=== PATIENT | female | born 1985 ===

== ENCOUNTER 2016-06-07 23:48 | Emergency (ER) | payer OTHER ==
[~2016-06-07] VITALS: Ht 137.2 cm; Wt 62.1 kg
[2016-06-08 00:43] LABS: PLATELET COUNT 348 K/uL (152-353)
[2016-06-08 00:49] LABS: POTASSIUM 3.6 mmol/L (3.6-5.2); SODIUM 135 mmol/L (136-145)
[2016-06-08 01:38] VITALS: BP 108/62; TEMP 97.8
== END 2016-06-08 01:39 | disposition home or self-care (01) ==
LOC: ED 23:48
PROVIDERS: Family Medicine
DX: R10.9 Unspecified abdominal pain (principal); R11.2 Nausea with vomiting, unspecified; K21.9 Gastro-esophageal reflux disease without esophagitis; K29.00 Acute gastritis without bleeding; B96.81 Helicobacter pylori [H. pylori] as the cause of diseases classified elsewhere
CPT/HCPCS: 80053; 85027; 86318; 96366; 96374; 99284; J2405

== ENCOUNTER 2016-06-09 23:26 | Emergency (ER) | payer OTHER ==
[~2016-06-09] VITALS: Ht 137.2 cm; Wt 62.1 kg
[2016-06-10 02:14] VITALS: BP 140/84; TEMP 98
== END 2016-06-10 02:19 | disposition home or self-care (01) ==
LOC: ED 23:26
DX: K59.00 Constipation, unspecified (principal)
CPT/HCPCS: 82272; 99283

== ENCOUNTER 2018-11-03 18:03 | Emergency (ER) | payer OTHER ==
[~2018-11-03] VITALS: Ht 151.1 cm; Wt 64.9 kg
[2018-11-03 19:35] VITALS: BP 112/65; TEMP 98.5
== END 2018-11-03 19:35 | disposition home or self-care (01) ==
LOC: ED 18:03
DX: J32.8 Other chronic sinusitis (principal); H65.192 Other acute nonsuppurative otitis media, left ear; J40 Bronchitis, not specified as acute or chronic
CPT/HCPCS: 99281; 99282

== ENCOUNTER 2018-12-19 17:26 | Emergency (ER) | payer OTHER ==
[~2018-12-19] VITALS: Ht 151.1 cm; Wt 64.9 kg
[2018-12-19 18:04] VITALS: BP 119/42; TEMP 98.3
[2018-12-20] MEDS ORDERED: CELEXA10 MG PO (09:15)
== END 2018-12-19 23:24 | disposition home health service (06) ==
LOC: ED 17:26
DX: F41.8 Other specified anxiety disorders (principal)
CPT/HCPCS: 99281

== ENCOUNTER 2018-12-20 08:37 | Emergency (ER) | payer OTHER ==
[~2018-12-20] VITALS: Ht 121.9 cm; Wt 64.0 kg
[2018-12-20] MEDS ORDERED: CELEXA10 MG PO (09:15)
[2018-12-20 09:16] VITALS: BP 119/52; TEMP 98.3
== END 2018-12-20 09:19 | disposition home or self-care (01) ==
LOC: ED 08:37
DX: F41.8 Other specified anxiety disorders (principal)
CPT/HCPCS: 93005; 99281; 99282